=== PATIENT | male | born 1985 | race Caucasian/White ===

== ENCOUNTER 2018-10-05 11:05 | Observation (INO) | payer OTHER ==
[~2018-10-05] VITALS: Ht 170.2 cm; Wt 53.8 kg
[2018-10-05 11:50] LABS: BASOPHILS # (AUTO) 0.03 x10^3/uL (0-0.1); BASOPHILS % (AUTO) 1 % (0-1); EOSINOPHILS # (AUTO) 0.27 x10^3/uL (0-0.4); EOSINOPHILS % (AUTO) 4 % (1-7); LYMPHOCYTES # (AUTO) 1.62 x10^3/uL (1-3.4); LYMPHOCYTES % (AUTO) 26 % (22-44); MD NO; MEAN CORPUSCULAR HEMOGLOBIN 31.2 pg (27.5-34.5); MEAN CORPUSCULAR HGB CONC 33.4 g/dL (33.2-36.2); MEAN CORPUSCULAR VOLUME 93.3 fL (81-97); MEAN PLATELET VOLUME 8.4 fL (7.4-10.4); MONOCYTES # (AUTO) 0.39 x10^3/uL (0.2-0.8); MONOCYTES % (AUTO) 6 % (2-9); NEUTROPHILS # (AUTO) 3.89 x10^3/uL (1.8-6.8); NEUTROPHILS % (AUTO) 63 % (42-75); PLATELET COUNT 220 x10^3/uL (130-400); RED BLOOD COUNT 5.31 x10^6/uL (4.38-5.82); RED CELL DISTRIBUTION WIDTH 13.9 % (9.4-14.8)
[2018-10-05 12:02] LABS: ALBUMIN 4.4 g/dL (3.4-5.0); ANION GAP 7 mmol/L (5-15); CALCIUM 9.1 mg/dL (8.5-10.1); CHLORIDE 104 mmol/L (98-107)
[2018-10-05 12:05] LABS: ALANINE AMINOTRANSFERASE 19 U/L (12-78); ALKALINE PHOSPHATASE 74 U/L (45-117); BILIRUBIN,TOTAL 0.7 mg/dL (0.2-1.0); CREATININE 1.04 mg/dL (0.7-1.3); TOTAL PROTEIN 7.6 g/dL (6.4-8.2)
[2018-10-05 12:07] LABS: ACETAMINOPHEN < 2 mcg/mL (10-30); SALICYLATE LEVEL < 1.7 mg/dL (2.8-20.0)
--- NOTE | 2018-10-05 12:20 | NUR ---
PT PLACED IN GOWN, ROOM SECURED, BELONGING TO LOCKER, URINE COLLECTED BY CONTROL CLERK HEAD. PT INSTRUCTED ON POC AND PROCESS. PT VERBALIZES UNDERSTANDING AND HAS BEEN COOPERATIVE WITH ALL CARE. SITTER AT DOORWAY, CONTINUE CLOSE OBS.
[2018-10-05 12:30] LABS: AMPHETAMINE SCREEN, URINE Positive (Negative); BARBITURATE SCREEN, URINE Negative (Negative); BENZODIAZEPINE SCREEN, URINE Negative (Negative); CANNABINOID SCREEN, URINE Positive (Negative); COCAINE SCREEN, URINE Negative (Negative); METHADONE SCREEN, URINE Negative (Negative); OPIATE SCREEN, URINE Negative (Negative)
--- NOTE | 2018-10-05 12:42 | NUR ---
ALL RESULTS BACK, PT FOR RECHECK.
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
[2018-10-05] MEDS ORDERED: ONDANSETRON ODT 4 MG PO PRN (13:30)
[2018-10-05] MEDS ORDERED: ACETAMINOPHEN 325 MG TABLET PO PRN (13:30)
[2018-10-05] MEDS ORDERED: GABAPENTIN 300 MG CAPSULE PO PRN (13:30)
[2018-10-05] MEDS ORDERED: POTASSIUM CHLORIDE 20 MEQ TAB.ER.PRT PO ONE (13:30)
--- NOTE | 2018-10-05 13:59 | NUR ---
REPORT TO ANNAMARIA HURTADO. PT TO BE TRANSFERRED SOON TO ROOM 261. 2N WILL CALL BACK TO LET US KNOW WHEN READY.
[2018-10-05] MEDS ORDERED: POTASSIUM CHLORIDE 20 MEQ TAB.ER.PRT ONE (14:00)
--- NOTE | 2018-10-05 14:05 | NUR ---
ED DIET TRAY ORDERED. POTASSIUM GIVEN PER ERP ORDER. PT UPDATED ON POC.
[2018-10-05 14:48] VITALS: BP 146/97
[2018-10-05 20:00] VITALS: BP 127/89
[2018-10-05] MEDS ORDERED: MIRTAZAPINE 15 MG TABLET PO SCH (21:00)
[2018-10-06 07:45] VITALS: BP 119/81
== END 2018-10-06 16:10 ==
LOC: ED 12:57 → EDIP 12:58 → SUATTDRO 13:03 → ED 13:40 → 2N 14:35
PROVIDERS: ADMIT Internal Medicine; ATTEND Internal Medicine
DX: R45.851 Suicidal ideations (principal); E87.6 Hypokalemia; F12.10 Cannabis abuse, uncomplicated; F15.10 Other stimulant abuse, uncomplicated; F17.200 Nicotine dependence, unspecified, uncomplicated; F33.2 Major depressive disorder, recurrent severe without psychotic features; F10.20 Alcohol dependence, uncomplicated
CPT/HCPCS: 36415; 80053; 80307; 80329; 85025; 99284; G0378; G0480